=== PATIENT | female | born 1960 | race Caucasian/White ===

== ENCOUNTER → 2018-10-06 | Outpatient (CLI) | payer OTHER ==
[2018-10-06 11:32] LABS: HEMATOCRIT 49.7 % (37.0-47.0); HEMOGLOBIN 16.3 g/dl (12.0-16.0); MEAN CELL VOLUME 86.9 fl (81.0-99.0); MEAN CORPUSCULAR HGB 28.5 pg (27.0-31.0); MEAN CORPUSCULAR HGB CONC 32.8 g/dl (33.0-37.0); MEAN PLATELET VOLUME 10.8 fl (9.6-12.3); RED BLOOD COUNT 5.72 10*6/uL (4.10-5.10); RED CELL DISTRI WIDTH 13.3 % (0-14.5); WHITE BLOOD COUNT 6.3 10*3/uL (4.8-10.8)
[2018-10-06 12:24] LABS: ALBUMIN 4.4 gm/dl (3.1-4.5); CREATININE 1.23 mg/dL (0.55-1.02); TOTAL PROTEIN 8.3 gm/dL (6.4-8.2)
[2018-10-06 12:33] LABS: FREE T4 1.15 ng/dl (0.76-1.46); THYROID STIM HORMONE (HS) 1.96 uIU/ml (0.358-4.75)
[2018-10-07 08:11] LABS: THYROID PEROXIDASE (TPO) AB 141 IU/mL (0-34)
[2018-10-07 13:07] LABS: THYROGLOBULIN ANTIBODY 1.1 IU/mL (0.0-0.9)
[2018-10-08 14:06] LABS: THYROTROPIN RECEPTOR AB <0.50 IU/L (0.00-1.75)
== END | disposition home or self-care (01) ==
LOC: LAB 10:43
PROVIDERS: Family Medicine
DX: E78.00 Pure hypercholesterolemia, unspecified (principal); E55.9 Vitamin D deficiency, unspecified; R53.83 Other fatigue; E04.9 Nontoxic goiter, unspecified; M25.50 Pain in unspecified joint

== ENCOUNTER → 2018-10-22 | Outpatient (CLI) | payer OTHER | END | disposition home or self-care (01) | LOC: US 12:59 | DX: E04.2 Nontoxic multinodular goiter (principal) ==

== ENCOUNTER → 2019-02-16 | Outpatient (CLI) | payer OTHER ==
[~2019-02-16] MED LIST: AMLODIPINE BESYL5 MG PO; CARVEDILOL3.125 MG PO; HYDROCHLOROTHIA25 M1 PO; LOSARTAN POTAS100 M1 PO; SERTRALINE HYDR25 MG PO
[2019-02-16 08:30] LABS: ALBUMIN 4.3 gm/dl (3.1-4.5); CREATININE 1.44 mg/dL (0.55-1.02); POTASSIUM 2.8 mmol/L (3.5-5.1); TOTAL PROTEIN 8.2 gm/dL (6.4-8.2)
== END | disposition home or self-care (01) ==
LOC: LAB 07:11
PROVIDERS: Nurse Practitioner Family
DX: F32.9 Major depressive disorder, single episode, unspecified (principal); F41.9 Anxiety disorder, unspecified

== ENCOUNTER 2019-02-17 15:25 | Inpatient (IN) | payer OTHER ==
[~2019-02-17] VITALS: Ht 167.6 cm
--- NOTE | ~2019-02-17 | EKG ---
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
--- NOTE | ~2019-02-17 | WRIGHTHP ---
[place], [place] PATIENT HISTORY AND PHYSICAL EXAM NAME: ORESTES MIRZA [facility] #: [id number] UNIT #: [id number] ROOM: 518 DOCTOR: LEE CLOUD MD BIRTHDATE: [birth year] DOS: 02/17/2019 HISTORY OF PRESENT ILLNESS: The patient is 58-year-old. She was at home watching some dishes, experienced severe tachycardia. Her heart rate sometimes was going into the high 100s, so she decided to come into the Emergency Room where she was evaluated in the ER. Initially heart rate was in the 130s with a systolic blood pressure in 185. After giving potassium and IV fluids, the heart rate came down into the low 90s-80s and her blood pressure became normal. She states that she was started on a new blood pressure medicine this week and since then she has been dizzy and lightheaded. She denies having any chest pains, palpitations, does not have any fever or chills, does not have urinary or bowel symptoms. PAST MEDICAL HISTORY: Significant for again: 1. Benign hypertension. 2. 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 No evidence of hypothyroidism. 3. 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 MEDICATIONS: She is currently on lisinopril, losartan/hydrochlorothiazide 100/12.5 carvedilol 3.125 b.i.d., sertraline 25 daily. SOCIAL HISTORY: Nonsmoker, does not use any alcohol. PHYSICAL EXAMINATION: GENERAL: She is awake and alert and oriented, in no distress. VITAL SIGNS: Blood pressure is 146/74 this morning, pulse of 70, respirations 20, temperature 98. LUNGS: Diminished breath sounds. Clear. HEART: Regular. No thyromegaly noted. ABDOMEN: Obese, soft, nontender. EXTREMITIES: Without any edema. LABORATORY DATA: White cell count is normal at 8.3, hemoglobin 16.4, hematocrit 48.7, platelets 17. Lactic acid normal. Comprehensive: Glucose 111, BUN 26, creatinine 1.44, sodium 135, potassium 2.8 chloride 96, bicarbonate 33. ASSESSMENT AND PLAN: 1. Severe hypokalemia. The patient was given supplementation and the labs have come back normal. 2. Palpitations, possibly from hypokalemia. This has resolved. Heart rate is in the low 80s. Echocardiogram was ordered. We do not have the results yet, but the patient is stable. 3. Acute kidney injury in a patient with chronic kidney disease. Avoid nephrotoxic medications. Losartan and hydrochlorothiazide were discontinued. The patient was given IV fluids. Kidney functions improved to her baseline, GFR of 46. Ultrasound of the kidneys were ordered, which did show left hydronephrosis. Unfortunately, we do not have a urologist in hospital: The patient was advised to see Urology as an outpatient. Urine culture shows no bacterial growth, preliminary. [place], [place] PATIENT HISTORY AND PHYSICAL EXAM NAME: ORESTES MIRZA UNIT #: [id number] ROOM: 518 DOCTOR: LEE CLOUD MD BIRTHDATE: [birth year] LEE CLOUD MD CM:HISPHYS:PATIENT HISTORY AND PHYSICAL EXAMINATION 1223 1239 LEE CLOUD MD 02/18/19 1236 interface
[2019-02-17 15:27] VITALS: BP 194/95
[2019-02-17 15:41] VITALS: BP 178/82
[2019-02-17 15:45] VITALS: BP 185/88
--- NOTE | 2019-02-17 15:49 | NUR ---
PT IS AWAKE AND ALERT AT THIS TIME. SHE HAS BEEN EXPERIENCING ELEVATED BLOOD PRESSURE FOR ABOUT THE LAST 10 DAYS. SHE WAS STARTED ON 2 MEDS FOR THE FIRST TIME AT THAT TIME. TODAY HER BP IS ELEVATED,AND HER HEART RATE HAS ALSO BEEN ELEVATED. HER COLOR IS PINK/FLUSHED,SKIN IS W/D. RESPIRATIONS ARE NON-LABORED. SHE HAS NO CO CHEST PAIN. DELORIS ABARCA
[2019-02-17 16:13] LABS: BASO # 0.1 10*3/uL (0.0-0.1); BASO % 0.7 % (0.0-1.0); EOS # 0.1 10*3/uL (0.0-0.4); EOS % 0.7 % (1.0-4.0); HEMATOCRIT 48.7 % (37.0-47.0); HEMOGLOBIN 16.4 g/dl (12.0-16.0); LYMPH # 1.6 10*3/uL (1.3-4.4); LYMPH % 18.9 % (27.0-41.0); MEAN CELL VOLUME 82.7 fl (81.0-99.0); MEAN CORPUSCULAR HGB 27.8 pg (27.0-31.0); MEAN CORPUSCULAR HGB CONC 33.7 g/dl (33.0-37.0); MEAN PLATELET VOLUME 11.2 fl (9.6-12.3); MONO # 0.5 10*3/uL (0.1-1.0); MONO % 5.5 % (3.0-9.0); NEUT # 6.2 10*3/uL (2.3-7.9); NEUT % 73.8 % (47.0-73.0); PLATELET COUNT AUTOMATED 197 10*3/uL (130-400); RED BLOOD COUNT 5.89 10*6/uL (4.10-5.10); RED CELL DISTRI WIDTH 12.5 % (0-14.5); WHITE BLOOD COUNT 8.3 10*3/uL (4.8-10.8)
[2019-02-17 16:33] LABS: BILIRUBIN NEGATIVE (NEGATIVE); BLOOD NEGATIVE (NEGATIVE); CLARITY SL CLOUDY (CLEAR); COLOR YELLOW (YELLOW); GLUCOSE NEGATIVE (NEGATIVE); KETONE NEGATIVE (NEGATIVE); LEUKO ESTERASE 1+ (NEGATIVE); NITRITE NEGATIVE (NEGATIVE); SPECIFIC GRAVITY <= 1.005 (1.005-1.030); UROBILINOGEN 0.2 E.U./dl (0.2-1.0)
[2019-02-17 16:36] LABS: ALBUMIN 4.3 gm/dl (3.1-4.5); BUN 27 mg/dl (7-24); CHLORIDE 98 mmol/L (98-107); CREATININE 1.48 mg/dL (0.55-1.02); LIPASE 79 U/L (73-393); POTASSIUM 2.8 mmol/L (3.5-5.1); SGOT/AST 24 IU/L (3-35); SGPT/ALT 36 U/L (12-78); SODIUM 134 mmol/L (136-145); TOTAL PROTEIN 8.4 gm/dL (6.4-8.2)
[2019-02-17 16:39] VITALS: BP 156/78
[2019-02-17 16:41] LABS: ALKALINE PHOSPHATASE 116 U/L (45-117)
[2019-02-17 16:43] LABS: ACT PARTIAL THROMBO TIME 23.5 SECONDS (20.0-32.1); INTERNATIONAL NORM RATIO 0.9 (2.0-3.5)
[2019-02-17 16:49] LABS: TROPONIN I < 0.015 ng/ml (<0.045)
[2019-02-17 16:55] LABS: BACTERIA TRACE; WBC 16-20 wbc/hpf (0-5)
[2019-02-17 17:32] VITALS: BP 164/90
[2019-02-17 18:00] VITALS: BP 158/68
--- NOTE | 2019-02-17 18:00 | NUR ---
A 58, admitted to , under the services of LEE Berman MD with a diagnosis of DIZZINESS, DEHYDRATION, HYPOKALEMIA. Chief complaint is HIGH BP. Patient arrived via bed from ER. Monitor applied. Initial assessment completed. Vital signs taken and recorded. LEE BERMAN MD notified of admission to the unit. Orders received. See assessment for past medical history, medications and allergies. Patient and/or family oriented to unit. [facility] visitation policy reviewed. Clothing/patient valuable form completed. BRIELLE VEE
[2019-02-17] MEDS ORDERED: SERTRALINE HYDR25 MG PO (18:16)
[2019-02-17] MEDS ORDERED: LOSARTAN POTAS100 M1 PO (18:17)
[2019-02-17] MEDS ORDERED: HYDROCHLOROTHIA25 M1 PO (18:17)
[2019-02-17] MEDS ORDERED: CARVEDILOL3.125 MG PO (18:17)
--- NOTE | 2019-02-17 18:20 | NUR ---
MED REC UPDATED PER POLICY.
[2019-02-18] VITALS: BP 135/70
[2019-02-18 07:28] LABS: CREATININE 1.2 mg/dL (0.55-1.02)
[2019-02-18 07:40] LABS: POTASSIUM 3.9 mmol/L (3.5-5.1)
[2019-02-18 08:00] VITALS: BP 146/74; BP 152/72
[2019-02-18] MEDS ORDERED: AMLODIPINE BESYL5 MG PO (08:32)
--- NOTE | 2019-02-18 11:27 | NUR ---
Discharge instructions reviewed with patient/family. Patient receptive and verbalizes understanding. Follow-up care arranged. Written instructions given to patient/family. STEPH WADSWORTH
== END 2019-02-18 11:27 | disposition home or self-care (01) | DRG 641 ==
LOC: ED 15:25 → EDHOLD 17:24 → 5E 17:24
PROVIDERS: Nurse Practitioner Family; ADMIT Internal Medicine
DX: E86.0 Dehydration (principal); N17.9 Acute kidney failure, unspecified; N18.9 Chronic kidney disease, unspecified; I12.9 Hypertensive chronic kidney disease with stage 1 through stage 4 chronic kidney disease, or unspecified chronic kidney disease; E87.6 Hypokalemia; Z88.0 Allergy status to penicillin; Z88.5 Allergy status to narcotic agent; Z88.8 Allergy status to other drugs, medicaments and biological substances

== ENCOUNTER → 2019-02-24 | Outpatient (CLI) | payer OTHER ==
[2019-02-24 17:09] LABS: ALBUMIN 4.2 gm/dl (3.1-4.5); CREATININE 1.18 mg/dL (0.55-1.02); POTASSIUM 4.1 mmol/L (3.5-5.1); TOTAL PROTEIN 8.1 gm/dL (6.4-8.2)
== END | disposition home or self-care (01) ==
LOC: LAB 16:40
PROVIDERS: Family Medicine
DX: I10 Essential (primary) hypertension (principal); E87.6 Hypokalemia

== ENCOUNTER → 2019-04-14 | Outpatient (CLI) | payer OTHER ==
[2019-04-14 12:41] LABS: BUN 19 mg/dl (7-24); CHLORIDE 107 mmol/L (98-107); CREATININE 1.08 mg/dL (0.55-1.02); POTASSIUM 4.1 mmol/L (3.5-5.1); SGOT/AST 24 IU/L (3-35); SGPT/ALT 51 U/L (12-78); SODIUM 139 mmol/L (136-145); TOTAL PROTEIN 8.2 gm/dL (6.4-8.2)
[2019-04-14 12:42] LABS: ALKALINE PHOSPHATASE 104 U/L (45-117)
== END | disposition home or self-care (01) ==
LOC: LAB 11:21
PROVIDERS: Family Medicine
DX: I10 Essential (primary) hypertension (principal)

== ENCOUNTER → 2020-10-04 | Outpatient (CLI) | payer OTHER ==
[2020-10-04 10:04] LABS: CREATININE 1.29 mg/dL (0.55-1.02); POTASSIUM 4.1 mmol/L (3.5-5.1)
== END | disposition home or self-care (01) ==
LOC: LAB 08:11
PROVIDERS: ATTEND Family Medicine
DX: E78.6 Lipoprotein deficiency (principal)

== ENCOUNTER → 2020-10-11 | Outpatient (CLI) | payer OTHER ==
[2020-10-11 14:08] LABS: CREATININE 1.13 mg/dL (0.55-1.02)
== END | disposition home or self-care (01) ==
LOC: LAB 13:05
PROVIDERS: ATTEND Family Medicine
DX: E87.6 Hypokalemia (principal)

== ENCOUNTER → 2021-04-04 | Outpatient (CLI) | payer OTHER ==
[2021-04-04 08:13] LABS: CREATININE 1.24 mg/dL (0.55-1.02); POTASSIUM 3.7 mmol/L (3.5-5.1)
== END | disposition home or self-care (01) ==
LOC: LAB 07:33
PROVIDERS: ATTEND Internal Medicine Nephrology
DX: I12.9 Hypertensive chronic kidney disease with stage 1 through stage 4 chronic kidney disease, or unspecified chronic kidney disease (principal); N18.31 Chronic kidney disease, stage 3a